=== PATIENT | male | born 1990 | race Caucasian/White ===

== ENCOUNTER 2017-05-16 20:32 | Emergency (ER) | payer OTHER ==
[~2017-05-16] VITALS: Ht 180.3 cm; Wt 65.8 kg
[2017-05-17] MEDS ORDERED: ZYNCOF 20-400120 ML PO ×2 (04:46→04:47)
[2017-05-17] MEDS ORDERED: OSEL75CA PO (04:47)
== END 2017-05-17 04:48 | disposition home or self-care (01) ==
LOC: ER 20:32
DX: J09.X2 Influenza due to identified novel influenza A virus with other respiratory manifestations (principal); B34.9 Viral infection, unspecified